=== PATIENT | male | born 1950 | race Caucasian/White ===

== ENCOUNTER 2016-09-10 09:57 | Inpatient (IN) ==
[2016-09-10 10:44] LABS: Calcium 8.8 mg/dL (8.6-10.8); Potassium 5.9 mEq/L (3.5-4.5)
[2016-09-10 11:01] LABS: Basophils % 0.5 %; Eosinophils # 0.1 K/mcL (0.0-0.6); Hematocrit 28.7 % (37.5-50.1); Hemoglobin 8.9 g/dL (12.9-16.9); Immature Granulocytes % 0.4 % (0-4); Lymphocytes % 13.9 %; Mean Corpuscular Hemoglobin 29.2 pg (28.0-33.3); Mean Corpuscular Volume 94.1 fL (83.0-100.0); Monocytes # 0.6 K/mcL (0.0-1.3); Monocytes % 8.2 %; Neutrophils # 5.5 K/mcL (1.6-8.9); Platelet Count 228 K/mcL (140-400); Red Blood Count 3.05 M/mcL (4.19-5.50); Red Cell Distribution Width 15.3 % (11.5-14.5)
--- NOTE | 2016-09-10 11:16 | Emergency Department Note ---
Disposition Clinical Impression: Acute renal failure (ARF), Hyperkalemia Disposition: Admitted As Inpatient Condition: Fair General Adult HPI - General Chief complaint: ED Recheck/Abnormal Lab/Rx Stated complaint: Abnormal labs Time Seen by Provider: 09/10/16 11:00 Source: patient Limitations: no limitations Nursing Notes Reviewed: Yes Vital Signs Reviewed: Yes - History of Present Illness HPI Narrative: Presents after being seen by the urologist yesterday and having a Prescott catheter placed because the patient has had difficulty with urinating. 1 and yesterday the creatinine level was 5.8 and so they sent the patient to the ED to have repeat blood tests done at the patient did have new-onset of renal failure. Denies any abdominal pain, fever, vomiting, blood in the urine or stool but has been going to an urgent care and was being treated for urinary tract infection and they did say they saw microscopic blood in the urine. No meds used for the renal failure. No hx renal failure Pain Scale: 0 - Related Data Home Medications Medication Instructions Recorded Confirmed Lisinopril [Zestril] 20 mg PO BID 09/10/16 09/10/16 Metoprolol [Lopressor] 25 mg PO BID 09/10/16 09/10/16 Naproxen Sodium [Aleve] 220 mg PO BID PRN 09/10/16 09/10/16 PredniSONE [Teresa] 3 mg PO DAILY 09/10/16 09/10/16 Tamsulosin [Flomax] 0.4 mg PO HS 09/10/16 09/10/16 Allergies Allergy/AdvReac Type Severity Reaction Status Date / Time No Known Allergies Allergy Verified 09/10/16 10:03 Review of Systems: Constitutional: No fever Vision: No blurred vision ENT: = rhinorrhea Respiratory: No cough Allergic: No allergies : No blood in urine GI: No blood in stool Hematologic: No bruising Dermatologic: No skin rash Musculoskeletal: No pain in the extremities Neuro: No numbness of the extremities Past Medical History - Past Medical History Medical history: Reports: hypertension, RA Psychiatric history: Reports: no psych history - Social History Smoking Status: Current every day smoker Smokeless Tobacco Status: Yes (jose enrique) Alcohol use: Reports: none Drug use: Reports: none Physical Exam CONSTITUTIONAL: Alert and oriented X3, well-nourished, well appearing, in no apparent distress HEAD: Normocephalic; atraumatic. EYES: PERRL, no scleral icterus. NOSE: The nose is normal in appearance without rhinorrhea RESP: Normal chest excursion with respiration; breath sounds clear and equal bilaterally; no wheezes, rhonchi, or rales CARD: Regular rhythm, without murmurs, rub or gallop ABD: Non-distended; very mild discomfort with palpation suprapubic area but soft without rigidity, rebound, guarding. Elsewhere the abdomen is non-tender , soft,without rigidity, rebound or guarding SKIN: Normal for age and race; warm and dry; no apparent lesions - General Limitations: no limitations General appearance: alert, in no apparent distress Course Vital Signs Temperature 98.4 F 09/10/16 09:58 Pulse Rate 81 09/10/16 09:58 Respiratory Rate 15 09/10/16 09:58 Blood Pressure 152/76 09/10/16 09:58 O2 Sat by Pulse Oximetry 99 09/10/16 09:58 Temperature 98.4 F 09/10/16 09:58 Pulse Rate 72 09/10/16 12:00 Respiratory Rate 18 09/10/16 12:06 Blood Pressure 150/72 09/10/16 12:06 O2 Sat by Pulse Oximetry 99 09/10/16 12:00 Oxygen Delivery Oxygen Delivery Room Air Medical Decision Making - [facility] Narrative Medical decision making narrative: The patient's symptoms are concerning with his elevated creatinine level and I did obtain an EKG showing normal sinus rhythm with a rate of 72 but does show evidence of hyperacute peaked T waves and a potassium level today is higher 5.9 and it was yesterday 5.6 the patient will receive insulin, dextrose, sodium bicarbonate. Because he is not symptomatic I will not give any calcium at this time. The patient will be admitted to the hospital I did speak with Kisha Johnson who is a nurse practitioner and she does accept the patient for admission to the hospitalist service. The patient's creatinine level is minimally improved compared to yesterday but is still over 4. He states he does not have a history of renal failure but has not had his kidney function checked in quite some time for over 1136, - Lab Data Lab results reviewed: Yes I reviewed the patient's lab results. Result diagrams: 09/10/16 10:49 05/11/17 10:20 Lab Results 09/10/16 09/10/16 09/10/16 Range/Units 10:20 10:36 10:49 WBC 7.3 (4.3-11.1) K/mcL RBC 3.05 L (4.19-5.50) M/mcL Hgb 8.9 L (12.9-16.9) g/dL Hct 28.7 L (37.5-50.1) % MCV 94.1 (83.0-100.0) fL MCH 29.2 (28.0-33.3) pg MCHC 31.0 L (31.6-35.5) g/dL RDW 15.3 H (11.5-14.5) % Plt Count 228 (140-400) K/mcL MPV 11.0 (9.4-12.4) fL Immature Gran % 0.4 (0-4) % Seg Neutrophils % 76.0 % Lymphocytes % 13.9 % Monocytes % 8.2 % Eosinophils % 1.0 % Basophils % 0.5 % Neutrophils # 5.5 (1.6-8.9) K/mcL Lymphocytes # 1.0 (0.6-4.6) K/mcL Monocytes # 0.6 (0.0-1.3) K/mcL Eosinophils # 0.1 (0.0-0.6) K/mcL Basophils # 0.0 (0.0-0.2) K/mcL Sodium 139 (136-145) mEq/L Potassium 5.9 H (3.5-4.5) mEq/L Chloride 120 H (98-109) mEq/L Carbon Dioxide 11 L (19-29) mEq/L BUN 65 H (8-26) mg/dL Creatinine 4.28 H (0.72-1.25) mg/dL Est GFR ( Amer) 17 L (> 60) Est GFR (Non-Af Amer) 14 L (> 60) BUN/Creatinine Ratio 15 (6-26) Glucose 122 H (70-99) mg/dL Calculated Osmolality 308 H (280-300) Calcium 8.8 (8.6-10.8) mg/dL Specimen Rejected MCV Delta
[2016-09-10] MEDS ORDERED: Insulin Human Regular 10 UNIT in 0.9 % Sodium Chloride 10 ML IV ONE (11:31)
[2016-09-10] MEDS ORDERED: Sodium Bicarbonate 50 MEQ/50 ML VIAL IVP ONE (11:31)
[2016-09-10] MEDS ORDERED: *HR* Dextrose 50 % in Water (Syg) 50 ML SYRINGE IVP ONE (11:32)
[2016-09-10] MEDS ORDERED: Acetaminophen 325 MG TABLET PO PRN (11:54)
[2016-09-10] MEDS ORDERED: Naloxone 0.4 MG/ML INJ IVP PRN (11:54)
[2016-09-10] MEDS ORDERED: D5% in 0.45% NACL 1,000 ML IVC SCH (12:00)
--- NOTE | 2016-09-10 12:10 | Internal Med History&Physical ---
Date of Encounter: 09/10/16 Time of Encounter: 11:30 Assessment and Plan (1) Acute renal failure (ARF) Current visit: Yes Status: Suspected Patient with acute renal failure. Unknown baseline. BUN and creatinine are severely elevated with hyperkalemia. Possible contributing factors include urinary retention, use of Aleve and lisinopril. Monitor urine output. IV hydration. Consult nephrology. Follow renal function closely. Qualifiers: Acute renal failure type: with acute tubular necrosis Qualified Code(s): N17.0 - Acute kidney failure with tubular necrosis (2) Essential hypertension Current visit: Yes Status: Chronic Blood pressure is elevated. Continue metoprolol. Hold lisinopril. (3) Hyperkalemia Current visit: Yes Status: Acute Potassium 5.9. Patient received sodium bicarbonate, insulin in the ER. Will recheck levels. Due to acute kidney injury (4) Hyperchloremic metabolic acidosis Current visit: Yes Status: Acute Will treat with IV hydration with D5 half normal saline and follow BMP. We will check for lactic acid. Internal Medicine - H&P: HPI Chief complaint: Asked to come in because of abnormal labs Admitted From: Emergency Dept Plans for Post Hospital Care: Home History of present illness: Mr. Woodruff is a 66 year old male patient with a history of hypertension who in by urology yesterday for urinary retention. He was referred to urology after multiple visits to the urgent care clinic for the past 3 months for urinary retention. Blood work was ordered yesterday and he had an abnormal renal function and so was asked to come to the ER. He denies any shortness of breath , pedal edema, chest pain or palpitations. She did have decreased urine output over the past 3 months and this seems to have improved after Prescott catheter was placed yesterday in the urology clinic. He has since then been having a much improved urine output. Denies any hematuria. No abdominal pain. No back pain. Patient has history of rheumatoid arthritis and has been taking Aleve 500 mg twice daily for the past 8 years. He is also on prednisone and has been tapering by 1 mg every month. He is currently taking 3 mg daily. He has not seen a biofuels plant construction worker recently and has an appointment with her biofuels plant construction worker in December. He has never been on any disease modifying agents. Past Med Surg Social Fam HX - Past Medical History Attestation: Yes The following information was validated with the patient. Source: patient Medical history: hypertension, RA Psychiatric history: no psych history - Past Surgical History Surgical History: other (Right rotator cuff surgery) - Social History Smoking Status: Current every day smoker Smokeless Tobacco Status: Yes (poloamritmara) Alcohol use: none Drug use: none - Additional Family History Additional family history: History of hypertension in multiple family members Internal Medicine - H&P: Meds Lisinopril [Zestril] 20 mg PO BID 09/10/16 [History] Metoprolol [Lopressor] 25 mg PO BID 09/10/16 [History] Naproxen Sodium [Aleve] 220 mg PO BID PRN 09/10/16 [History] PredniSONE [Teresa] 3 mg PO DAILY 09/10/16 [History] Tamsulosin [Flomax] 0.4 mg PO HS 09/10/16 [History] Allergies No Known Allergies Allergy (Verified 09/10/16 10:03) All Systems PM: A 10-system review of systems was performed and is negative for pertinent findings except as documented above in the HPI. - Constitutional Constitutional: malaise, no chills, no fever(s), no night sweats - EENT Eyes: no change in vision, no discharge, no pain, no photophobia Ears: no ear discharge, no ear pain, no tinnitus Nose, mouth and throat: no dysphagia, no nasal discharge, no neck pain, no sore throat - Cardiovascular Cardiovascular ROS IM: no chest pain, no diaphoresis, no dyspnea, no lightheadedness, no palpitations, no syncope - Respiratory Respiratory: no cough, no dyspnea, no wheezing, no excessive phlegm production - Gastrointestinal Gastrointestinal: no abdominal pain, no diarrhea, no hematemesis, no hematochezia, no melena, no nausea, no vomiting - Genitourinary Genitourinary ROS male: urinary hesitancy - Musculoskeletal Musculoskeletal ROS IM: no numbness, no tingling - Integumentary Integumentary IM: no rash, no unusual bruising - Neurological Neurological ROS: no confusion, no convulsions, no focal weakness, no numbness, no tingling, no tremor(s) - Hematologic/Lymphatic Hematologic/Lymphatic: no easy bruising - Constitutional Vitals: Temp Pulse Resp BP Pulse Ox 98.4 F 72 18 150/72 99 09/10/16 09:58 09/10/16 12:00 09/10/16 12:06 09/10/16 12:06 09/10/16 12:00 General appearance: Present: cooperative, A&O X 3, pleasant, no acute distress, answers questions appropriately - Eye Eye exam: Present: EOMI, PERRL, conjuntiva pink, sclera anicteric - Neck Neck exam general surgery: Present: supple, trachea midline. Absent: lymphadenopathy - Respiratory Respiratory exam: Present: CTAB. Absent: accessory muscle use, rales, rhonchi, wheezes - Cardiovascular Cardiovascular exam: Present: RRR, +S1, +S2. Absent: diastolic murmur, gallop, rubs, systolic murmur - GI/Abdominal GI/Abdominal exam: Present: normal bowel sounds, soft, no peritoneal signs. Absent: distended, tenderness - Extremities Exam Extremities exam: Present: warm, radial pulses palpable and symetrical. Absent : calf tenderness, cyanotic, pedal edema Additional comments: Changes in his finger joints related to rheumatoid arthritis noted bilaterally - Neurological Exam Neurological exam: Present: CN II-XII intact, oriented X3, no focal deficits, strengths equal and symetr throughout. Absent: facial droop, speech deficit - Skin Skin exam: Present: dry, intact Internal Med - H&P Results - Labs CBC & Chem 7: 09/10/16 10:49 09/10/16 10:20 - EKG Data -: EKG Interpreted by Myself - EKG Data EKG comments: 09/10/16 12:12 Sinus rhythm with hyperacute T waves in lateral leads - Attending Attestation This document has been at least partially created by [employer] recognition technology by Dr. Beard. Errors in grammar, wording or other phrases may exist. If errors are found after the documentation is signed, they will be addressed individually in the addendum section of this document when appropriate.
--- NOTE | 2016-09-10 13:18 | Nephrology Consult Note ---
<Mari Montoya - Last Filed: 09/10/16 13:29> Date of Encounter: 09/10/16 Time of Encounter: 13:15 Assessment and Plan (1) DAVE (acute kidney injury) Status: Acute Baseline of kidney function unknown. Suspect DAVE from urinary retention and penitentiary NSAID and Lisinopril usage. Need strict I/Os Will proceed with acute and chronic workup to include: renal ultrasoun, iron studies (iron, sat, ferritin), vitamin B12, folic acid, UA, urine culture, urine sodium, urine creatinine, urine eosinophils, CPK, uric acid level, PTH, C3 C4 complements, Vit D 25-OH, BRITTANY, spep, upep, urine albumin to creatine ratio Will change IV fluids to D5W with 150mEq sodium bicarb at 125ml/hour. Avoid nephrotoxins Continue to hold Aleve and Lisinopril Repeat BMP at 6pm tonight (2) Anemia Status: Acute Iron studies ordered Qualifiers: Anemia type: other cause Other causes of anemia: other cause, not classified Qualified Code(s): D64.89 - Other specified anemias (3) Hyperchloremic metabolic acidosis Status: Acute see above (4) Hyperkalemia Status: Acute see above History of Present Illness - Reason for Consult Consult date: 09/10/16 Acute Kidney Injury - Chief Complaint DAVE, hyperkalemia, metabolic acidosis - History of Present Illness Mr. Woodruff is a 66 year old male patient with a history of hypertension who was seen by urology yesterday for urinary retention. Patient has had problems with urinary retention x 3 months. Blood work was ordered yesterday and he had an abnormal renal function and so was asked to come to the ER. He did have decreased urine output over the past 3 months and this seems to have improved after Prescott catheter was placed yesterday in the urology clinic. Patient has history of rheumatoid arthritis and has been taking Aleve 220 mg twice daily for the past 8 years. He is also on prednisone and Lisinopril. Denies any past history of kidney disease nor any family history of kidney disease. Past Med Surg Social Fam HX - Past Medical History Medical history: hypertension, RA Psychiatric history: no psych history - Past Surgical History Surgical History: other - Social History Smoking Status: Current every day smoker Smokeless Tobacco Status: Yes (jose enrique) Alcohol use: none Drug use: none - Family History Father Living Status: Still Living Hx Family Cardiac Disorders: Yes Hx Family Cancer: Yes (prostate cancer) Medications and Allergies Metoprolol [Lopressor] 25 mg PO BID 09/10/16 [History] PredniSONE [Teresa] 3 mg PO DAILY 09/10/16 [History] Tamsulosin [Flomax] 0.4 mg PO HS 09/10/16 [History] Omeprazole [PriLOSEC] 40 mg PO DAILY@0630 #30 capsule. 09/13/16 [Rx] Allergies No Known Allergies Allergy (Verified 09/10/16 10:03) Review of Systems All Systems: reviewed and no additional remarkable complaints except as stated Constitutional: no anorexia, no chills, no lethargy, no malaise Cardiovascular: no chest pain, no dyspnea, no leg edema Respiratory: no cough, no dyspnea Genitourinary Male: difficulty urinating Neurological: no behavioral changes, no confusion Exam - Vital Signs Vital signs: Initial Vital Signs Temp Pulse Resp BP Pulse Ox 98.4 F 81 15 152/76 99 09/10/16 09:58 09/10/16 09:58 09/10/16 09:58 09/10/16 09:58 09/10/16 09:58 Vital Signs - Last 8 Hours Temp Pulse Resp BP Pulse Ox 09/10/16 13:14 97.6 F 85 16 144/75 98 09/10/16 12:06 18 150/72 09/10/16 12:00 72 18 148/81 99 Intake and Output 09/09/16 09/10/16 09/10/16 23:59 07:59 15:59 Output Total 150 / 150 Balance -150 / -150 Output: Catheter 150 / 150 Other: Weight 69 kg Patient Weight 09/10/16 23:59 Weight 69 kg - General Appearance General appearance: well-developed, well-nourished EENT: ATNC, mucous membranes moist, hearing intact, vision intact Neck: supple Respiratory: clear Cardiology: no edema, normal S1, normal S2 Gastrointestinal: no tenderness, no guarding Integumentary: warm and dry Neurologic: alert and oriented x3 Psychiatric: mood/affect appropriate, cooperative Results - Lab Results 09/10/16 10:49 09/10/16 10:20 Most recent lab results Calcium 8.8 mg/dL (8.6-10.8) 09/10/16 10:20 Consult Discharge Plan - Plan Instructions: Omeprazole (By mouth), Acute Kidney Injury (DC), Chronic Hypertension (DC), Anemia (GEN) Referrals: Jamie Adam DO [Partnered Physician] - (Web request sent in for follow up in 3weeks after D/C. Will call with appointment. 09/13/16) Bear Peters MD [Primary Care Provider] - (please call office on next business day to set up a follow up appointment in 5-7 days) Umair Venegas MD [Partnered Physician] - (Web request sent for appointment with urology in [place]. 09/13/16) Jemal Allen MD [Partnered Physician] - (Web request sent for appointment out patient d/t anemia 09/13/16) Prescriptions: Omeprazole [PriLOSEC] 40 mg PO DAILY@0630 #30 capsule. <Minnie Kinney - Last Filed: 09/20/16 23:37> Date of Encounter: 09/10/16 Exam - Vital Signs Vital signs: Initial Vital Signs Temp Pulse Resp BP Pulse Ox 98.4 F 81 15 152/76 99 09/10/16 09:58 09/10/16 09:58 09/10/16 09:58 09/10/16 09:58 09/10/16 09:58 Results - Lab Results 09/13/16 04:00 09/13/16 04:00 Most recent lab results Calcium 7.5 mg/dL (8.6-10.8) L 09/13/16 04:00 Urine Creatinine 49 mg/dL 09/10/16 18:56 Urine Sodium 86.0 mEq/L 09/10/16 15:10 Urine Total Protein 64 mg/dL (1-14) H 09/10/16 18:56 - Attending Attestation I examined this patient and my medical decision-making was reviewed with the BLUE [employer]IN[employer] TRIMMER/PA/Advanced Practice Nurse/Resident Physician. I agree with the documented findings, disposition and treatment plan as described except to the extent set forth below. Pt seen and examined with elevated SCr in the setting of urinary retention, NSAIDs and lisinopril. No acute indication for ORTHOPEDIC PHYSICIAN ASSISTANT at this time but will initiate workup for possible DAVE along with possible CKD, detail as documented by MANGANESE WHEELER.
[2016-09-10] MEDS ORDERED: Sodium Bicarbonate 150 MEQ in D5% in Water 1,000 ML IVC SCH (13:45)
[2016-09-10 14:43] LABS: Calcium 8.6 mg/dL (8.6-10.8); Potassium 5.1 mEq/L (3.5-4.5)
[2016-09-10 14:45] LABS: Uric Acid 6.7 mg/dL (3.5-7.2)
[2016-09-10 15:20] LABS: Folate 3.3 ng/mL (7.0-31.4)
--- NOTE | 2016-09-10 15:47 | Electrocardiograph Report ---
[address] [address] Test Date: 2016-09-10 Pat Name: Michael Woodruff Department: 105 Room: 2A44 Gender: M Volunteer Manager: ALEJANDRA : 1950 Requested By: Thony Sharma Order Number: [id number] Reading MD: Jem Cam Measurements Intervals [place] Rate: 72 P: 68 WV: 145 QRS: 20 QRSD: 89 T: 49 QT: 363 QTc: 387 Interpretive Statements SINUS RHYTHM Electronically Signed On 09-10-2016 15:46:32 EDT by Jem Cam
[2016-09-10 19:16] LABS: Bilirubin,Urine Negative (Negative); Blood,Urine Large (Negative); Clarity,Urine Turbid (Clear); Color,Urine Yellow (Yellow); Glucose,Urine (UA) Normal (Normal); Ketones,Urine Negative (Negative); Leukocyte Esterase,Urine Large (Negative); Nitrite,Urine Negative (Negative); PH,Urine 5.5 pH Units (5.0-8.0); Protein,Urine 30 mg/dL (Neg-Trace); Urobilinogen,Urine Normal (Normal)
[2016-09-10 19:23] LABS: Bacteria,Urine None Seen per hpf (None-Few); RBC,Urine 50-100 per hpf (0-3); Squamous Epithelial Cell,Urine Moderate per lpf (None-Few); WBC,Urine TNTC per hpf (0-3)
[2016-09-10 19:25] LABS: Protein/Creatinine Ratio,Urine 1.31 mg/mg (0-0.20)
[2016-09-11 04:53] LABS: Basophils % 0.5 %; Eosinophils # 0.3 K/mcL (0.0-0.6); Eosinophils % 4.1 %; Hematocrit 21.9 % (37.5-50.1); Immature Granulocytes % 0.9 % (0-4); Lymphocytes # 1.8 K/mcL (0.6-4.6); Lymphocytes % 23.2 %; Mean Corpuscular HGB Conc 32.4 g/dL (31.6-35.5); Mean Corpuscular Hemoglobin 29.2 pg (28.0-33.3); Mean Corpuscular Volume 90.1 fL (83.0-100.0); Mean Platelet Volume 11.2 fL (9.4-12.4); Monocytes # 0.7 K/mcL (0.0-1.3); Monocytes % 8.8 %; Neutrophils # 4.8 K/mcL (1.6-8.9); Platelet Count 191 K/mcL (140-400); Red Blood Count 2.43 M/mcL (4.19-5.50); Red Cell Distribution Width 14.9 % (11.5-14.5); Segmented Neutrophils % 62.5 %
[2016-09-11 05:02] LABS: Hemoglobin 7.1 g/dL (12.9-16.9)
[2016-09-11 05:05] LABS: Hemoglobin A1C 5.2 %
[2016-09-11 05:11] LABS: Chol/HDL Ratio 4.7 (0-4.9)
[2016-09-11 05:12] LABS: Calcium 7.8 mg/dL (8.6-10.8); Potassium 4.2 mEq/L (3.5-4.5)
[2016-09-11] MEDS ORDERED: *HR* Heparin 5,000 UNIT/ML VIAL SQ SCH (06:00)
[2016-09-11] MEDS: predniSONE 1 MG TABLET PO SCH (08:35)
--- NOTE | 2016-09-11 10:28 | Nephrology Progress Note ---
Date of Encounter: 09/11/16 Time of Encounter: 08:05 - Assessment and Plan (1) Bilateral hydronephrosis Current Visit: Yes Status: Acute Noted on renal U/S. Most likely etiology for the DAVE,which is starting to trend better already. (2) DAVE (acute kidney injury) Current Visit: Yes Status: Acute DAVE appears primarily post-renal. Continue the ochoa catheter which has helped already improve the renal function. His appetite is improving so the uremic symptoms are resolving, and so no urgent HD is indicated. He will need close urology follow up, but continue the ochoa until then. Metabolic acidosis should correct. Will stop the bicarb gtt. In fact, he has a risk of developing a post-obstructive autodiuresis. Monitor UOP, K, Na ( sometimes pt's can develop hypernatremia in this situation) Will switch to 1/2NS today, which would be more appropriate (3) Hyperkalemia Current Visit: Yes Status: Acute Improving (4) Essential hypertension Current Visit: Yes Status: Chronic Will monitor. Avoid JANINE or ARB d/t the DAVE (5) Proteinuria Current Visit: Yes Status: Acute He has RA and is taking NSAIDs every day, so these conditions likely explains the findings of mild proteinuria. Plus just having an DAVE can lead to some proteinuria as well. Qualifiers: Proteinuria type: persistent Qualified Code(s): R80.1 - Persistent proteinuria, unspecified Subjective Principal diagnosis: DAVE, BPH Interval history: Pt was S/E. His said his appetite has already started to improve. Was taking Aleve daily for his RA. He did not affirm N/V/D today nor abd pain. Ochoa was placed last night and Bicarb gtt was given. Objective - Vital Signs Vital signs: Vital Signs Temp Pulse Resp BP Pulse Ox 09/11/16 08:30 96 09/11/16 07:16 98.4 F 66 14 116/67 96 09/11/16 05:02 98.2 F 77 17 133/73 98 09/10/16 23:52 98.1 F 74 16 127/72 97 09/10/16 19:42 98.3 F 76 18 137/67 96 09/10/16 17:06 98.3 F 74 16 155/72 99 09/10/16 13:14 97.6 F 85 16 144/75 98 09/10/16 12:06 18 150/72 05/11/17 12:00 72 18 148/81 99 Intake and Output 09/10/16 09/11/16 09/11/16 23:59 07:59 15:59 Intake Total 240 / 240 Output Total 200 / 200 1200 / 1200 800 / 800 Balance -200 / -200 -1200 / -1200 -560 / -560 Intake: Oral 240 / 240 Output: Urine 0 / 0 Straight Cath 1200 / 1200 Catheter 200 / 200 800 / 800 Other: Meal Dinner Breakfast Percent of Meal Consumed 10% 100% # Bowel Movements 1 Weight 69 kg Patient Weight 09/11/16 23:59 Weight 69 kg - General Appearance General appearance: Present: well-developed, well-nourished, appears started age Exam: Long facial roberts EENT: Present: ATNC, PERRL, mucous membranes moist Neck: Present: supple Respiratory: Present: clear Cardiology: Present: no edema, normal S1, normal S2 Gastrointestinal: Present: normoactive bowel sounds, no tenderness, no guarding Integumentary: Present: no rash, warm and dry Neurologic: Present: no focal deficit, no asterixis, alert and oriented x3 Musculoskeletal: Present: no deformities, no erythema, no cyanosis, joint swelling (with ulnar deviation of wrists and fingers) Psychiatric: Present: mood/affect appropriate, cooperative - Lab 09/11/16 04:13 09/11/16 04:13 Most recent lab results Calcium 7.8 mg/dL (8.6-10.8) L 09/11/16 04:13 Urine Creatinine 49 mg/dL 09/10/16 18:56 Urine Total Protein 64 mg/dL (1-14) H 09/10/16 18:56 Consult Discharge Plan - Plan Referrals: Bear Peters MD [Primary Care Provider] -
[2016-09-11] MEDS ORDERED: Sodium Bicarbonate 150 MEQ in D5% in Water 1,000 ML IVC SCH (10:30)
--- NOTE | 2016-09-11 17:00 | Internal Med Progress Note ---
Date of Encounter: 09/11/16 Time of Encounter: 14:00 - Assessment and plan (1) DAVE (acute kidney injury) Current Visit: Yes Status: Acute Assessment and plan: likely postrenal, continue with ochoa and nephrology input, no indications for hd avoid nephrotoxic agents. (2) Anemia Current Visit: Yes Status: Acute Assessment and plan: likely due to chronic disease, also positive blood in stool, will start ppi, recheck hb tomorrow. Qualifiers: Anemia type: other cause Other causes of anemia: other cause, not classified Qualified Code(s): D64.89 - Other specified anemias (3) Bilateral hydronephrosis Current Visit: Yes Status: Acute - Subjective Interval history: first encounter with the patient. no cough, no shortness of breath, no melena. - Constitutional Vitals: Temp Pulse Resp BP Pulse Ox 98.2 F 74 15 132/70 95 09/11/16 15:06 09/11/16 15:06 09/11/16 15:06 09/11/16 15:06 09/11/16 15:06 General appearance: Present: cooperative, A&O X 3, pleasant, no acute distress, answers questions appropriately - Head Head exam: Present: atraumatic, normocephalic - Eye Eye exam: Present: PERRL, conjuntiva pink, sclera anicteric Pupils: Present: PERRL - Neck Neck exam general surgery: Present: supple, trachea midline. Absent: lymphadenopathy - Respiratory Respiratory exam: Present: CTAB. Absent: accessory muscle use, rales, rhonchi, wheezes - Cardiovascular Cardiovascular exam: Present: RRR, +S1, +S2. Absent: diastolic murmur, gallop, rubs, systolic murmur - GI/Abdominal GI/Abdominal exam: Present: normal bowel sounds, soft, no peritoneal signs. Absent: distended, tenderness - Extremities Exam Extremities exam: Present: warm, radial pulses palpable and symetrical. Absent : calf tenderness, cyanotic, pedal edema - Neurological Exam Neurological exam: Present: CN II-XII intact, oriented X3, no focal deficits. Absent: pronater drift, facial droop, speech deficit - Skin Skin exam: Present: dry, intact Internal Medicine: Result - Labs CBC & Chem 7: 09/11/16 04:13 05/12/17 04:13 Labs: Short CBC 09/11/16 Range/Units 04:13 WBC 7.7 (4.3-11.1) K/mcL Hgb 7.1 L D (12.9-16.9) g/dL Hct 21.9 L (37.5-50.1) % Plt Count 191 (140-400) K/mcL Neutrophils # 4.8 (1.6-8.9) K/mcL BMP 09/10/16 09/11/16 17:05 04:13 Sodium 140 Potassium 4.8 H 4.2 Chloride 109 Carbon Dioxide 22 BUN 50 H D Creatinine 3.02 H Glucose 114 H Calcium 7.8 L Urine 09/10/16 Range/Units 18:56 Urine Color Yellow (Yellow) Urine Clarity Turbid A (Clear) Urine pH 5.5 (5.0-8.0) pH Units Ur Specific [place] 1.010 (1.010-1.025) Urine Protein 30 H (Neg-Trace) mg/dL Urine Glucose (UA) Normal (Normal) mg/dL - Impressions Impressions Retroperitoneum Ultrasound 09/10/16 15:30 IMPRESSION: Bilateral hydronephrosis, right worse than left, without obvious etiology. Kidneys are otherwise unremarkable. Limited evaluation of urinary bladder secondary to underdistention. There is diffuse bladder wall thickening which may relate to the underdistention but nonspecific cystitis or chronic bladder outlet obstruction not excluded. Clinical and laboratory correlation suggested. Enlarged prostate. D/ / 09/10/2016 16:39:33 Frantz Bonilla MD / Jasmina Hong Interpreting Provider: Frantz Bonilla MD - VTE Documentation of Mechanical Device: Intermittent pneumatic compression device Consult Discharge Plan - Plan Referrals: Bear Peters MD [Primary Care Provider] -
[2016-09-12 03:22] LABS: Basophils % 0.5 %; Eosinophils # 0.3 K/mcL (0.0-0.6); Eosinophils % 3.8 %; Hematocrit 24.4 % (37.5-50.1); Hemoglobin 7.8 g/dL (12.9-16.9); Immature Granulocytes % 0.8 % (0-4); Lymphocytes # 1.9 K/mcL (0.6-4.6); Lymphocytes % 24.9 %; Mean Corpuscular Hemoglobin 29.5 pg (28.0-33.3); Mean Corpuscular Volume 92.4 fL (83.0-100.0); Mean Platelet Volume 11.4 fL (9.4-12.4); Monocytes # 0.7 K/mcL (0.0-1.3); Monocytes % 9.2 %; Neutrophils # 4.6 K/mcL (1.6-8.9); Platelet Count 189 K/mcL (140-400); Red Blood Count 2.64 M/mcL (4.19-5.50); Red Cell Distribution Width 14.8 % (11.5-14.5); Segmented Neutrophils % 60.8 %
[2016-09-12 03:34] LABS: Calcium 7.6 mg/dL (8.6-10.8); Potassium 4.1 mEq/L (3.5-4.5)
[2016-09-12] MEDS: predniSONE 1 MG TABLET PO SCH (08:21)
[2016-09-12 10:48] LABS: Complement Component 3 91 mg/dL (88-201); Complement Component 4 14 mg/dL (10-40)
[2016-09-12 11:38] LABS: Total Volume 24 Hour,Urine 3.49 Liters (0.80-1.80)
[2016-09-12 12:05] LABS: Creatinine 24 Hour,Urine 1.57 g/day (0.71-1.65)
--- NOTE | 2016-09-12 12:10 | Internal Med Progress Note ---
Date of Encounter: 09/12/16 Time of Encounter: 12:08 - Assessment and plan (1) DAVE (acute kidney injury) Current Visit: Yes Status: Acute Assessment and plan: likely postrenal, continue with ochoa and nephrology input, no indications for hd renal fucntion tests getting better. will continue monitoring. avoid nephrotoxic agents. (2) Anemia Current Visit: Yes Status: Acute Assessment and plan: likely due to chronic disease, also positive blood in stool, will continuw with ppi, hb got better today, hb is 7.8. recheck hb tomorrow. Qualifiers: Anemia type: other cause Other causes of anemia: other cause, not classified Qualified Code(s): D64.89 - Other specified anemias (3) Bilateral hydronephrosis Current Visit: Yes Status: Acute - Subjective Interval history: feels better. no cough, no shortness of breath, no melena. - Constitutional Vitals: Temp Pulse Resp BP Pulse Ox 98.1 F 61 18 117/69 96 09/12/16 10:49 09/12/16 10:49 09/12/16 10:49 09/12/16 10:49 09/12/16 10:49 General appearance: Present: cooperative, A&O X 3, pleasant, no acute distress, answers questions appropriately Exam: ochoa bg with clear urine. - Head Head exam: Present: atraumatic, normocephalic - Eye Eye exam: Present: PERRL, conjuntiva pink, sclera anicteric Pupils: Present: PERRL - Neck Neck exam general surgery: Present: supple, trachea midline. Absent: lymphadenopathy - Respiratory Respiratory exam: Present: CTAB. Absent: accessory muscle use, rales, rhonchi, wheezes - Cardiovascular Cardiovascular exam: Present: RRR, +S1, +S2. Absent: diastolic murmur, gallop, rubs, systolic murmur - GI/Abdominal GI/Abdominal exam: Present: normal bowel sounds, soft, no peritoneal signs. Absent: distended, tenderness - Extremities Exam Extremities exam: Present: warm, radial pulses palpable and symetrical. Absent : calf tenderness, cyanotic, pedal edema - Neurological Exam Neurological exam: Present: CN II-XII intact, oriented X3, no focal deficits. Absent: pronater drift, facial droop, speech deficit - Skin Skin exam: Present: dry, intact Internal Medicine: Result - Labs CBC & Chem 7: 09/12/16 02:32 09/12/16 02:32 Labs: Short CBC 09/12/16 Range/Units 02:32 WBC 7.6 (4.3-11.1) K/mcL Hgb 7.8 L (12.9-16.9) g/dL Hct 24.4 L (37.5-50.1) % Plt Count 189 (140-400) K/mcL Neutrophils # 4.6 (1.6-8.9) K/mcL BMP 09/12/16 02:32 Sodium 137 Potassium 4.1 Chloride 106 Carbon Dioxide 23 BUN 39 H D Creatinine 2.58 H Glucose 99 Calcium 7.6 L - VTE Documentation of Mechanical Device: Intermittent pneumatic compression device Consult Discharge Plan - Plan Referrals: Bear Peters MD [Primary Care Provider] -
--- NOTE | 2016-09-12 16:27 | Nephrology Progress Note ---
Date of Encounter: 09/12/16 Time of Encounter: 14:15 - Assessment and Plan (1) Bilateral hydronephrosis Current Visit: Yes Status: Acute Noted on renal U/S. Most likely etiology for the DAVE. The DAVE is continuing to improve with the ochoa in place. (2) DAVE (acute kidney injury) Current Visit: Yes Status: Acute Improving, ADVE, which appears primarily post-renal. Continue the ochoa catheter which has helped already improve the renal function. He will need close urology follow up, but continue the ochoa until then. Will continue to monitor UOP, K, Na (sometimes pt's can develop hypernatremia in this situation) Will switch to 1/2NS today, which would be more appropriate. Earlier today I held the 1/2NS and will assess his renal function tomorrow AM to see if he can orally maintain his renal function Continue to follow a renal protective strategy. Thank you. (3) Hyperkalemia Current Visit: Yes Status: Acute Improving (4) Essential hypertension Current Visit: Yes Status: Chronic Will monitor. Avoid JANINE or ARB d/t the DAVE (5) Proteinuria Current Visit: Yes Status: Acute He has RA and is taking NSAIDs every day, so these conditions likely explains the findings of mild proteinuria. Plus just having an DAVE can lead to some proteinuria as well. Qualifiers: Proteinuria type: persistent Qualified Code(s): R80.1 - Persistent proteinuria, unspecified Subjective Principal diagnosis: DAVE, BPH Interval history: Pt was S/E. His said his appetite remains intact. He did not affirm N/V/D today nor abd pain. Ochoa remains in place. Objective - Vital Signs Vital signs: Vital Signs Temp Pulse Resp BP Pulse Ox 09/12/16 15:40 98.2 F 72 18 124/68 96 09/12/16 10:49 98.1 F 61 18 117/69 96 09/12/16 08:45 96 09/12/16 06:55 98.3 F 66 16 109/62 96 09/12/16 04:06 97.9 F 71 15 102/66 97 09/12/16 00:06 97.7 F 74 15 116/66 97 09/11/16 19:50 98.2 F 82 18 121/67 96 Intake and Output 05/13/17 05/13/17 05/13/17 07:59 15:59 23:59 Intake Total 1300 / 1300 360 / 360 Output Total 550 / 550 1949 / 1949 Balance 750 / 750 -1590 / -1590 Intake: IV Fluids 1000 / 1000 0.45% Sodium Chloride 1000 / 1000 1000 Ml 1000 Ml 1,000 ML @ 75 mls/hr IVC .[id number] [facility] Rx#:[id number] Oral 300 / 300 360 / 360 Output: Urine 0 / 0 Catheter 550 / 550 1949 Other: Meal Lunch Percent of Meal Consumed 100% Weight 69.2 kg Patient Weight 09/12/16 23:59 Weight 69.2 kg - General Appearance General appearance: Present: well-developed, well-nourished, appears started age EENT: Present: ATNC, PERRL, mucous membranes moist Neck: Present: supple Respiratory: Present: clear Cardiology: Present: regular rate, regular rhythm, normal S1, normal S2 Gastrointestinal: Present: normoactive bowel sounds, no tenderness, no guarding Integumentary: Present: no rash, warm and dry Neurologic: Present: no focal deficit, no asterixis, alert and oriented x3 Musculoskeletal: Present: no deformities, no erythema, no cyanosis Psychiatric: Present: mood/affect appropriate, cooperative - Lab 09/12/16 02:32 09/12/16 02:32 Most recent lab results Calcium 7.6 mg/dL (8.6-10.8) L 09/12/16 02:32 Urine Creatinine 49 mg/dL 09/10/16 18:56 Urine Sodium 86.0 mEq/L 09/10/16 15:10 Urine Total Protein 64 mg/dL (1-14) H 09/10/16 18:56 - VTE Documentation of Mechanical Device: Intermittent pneumatic compression device Consult Discharge Plan - Plan Referrals: Bear Peters MD [Primary Care Provider] -
[2016-09-13 04:16] LABS: Basophils % 0.4 %; Eosinophils # 0.3 K/mcL (0.0-0.6); Hematocrit 26.6 % (37.5-50.1); Hemoglobin 8.5 g/dL (12.9-16.9); Immature Granulocytes % 0.9 % (0-4); Lymphocytes % 25.5 %; Mean Corpuscular Hemoglobin 29.3 pg (28.0-33.3); Mean Corpuscular Volume 91.7 fL (83.0-100.0); Monocytes # 0.7 K/mcL (0.0-1.3); Monocytes % 9.4 %; Neutrophils # 4.7 K/mcL (1.6-8.9); Platelet Count 183 K/mcL (140-400); Red Cell Distribution Width 14.6 % (11.5-14.5); Segmented Neutrophils % 59.8 %
[2016-09-13 04:26] LABS: Calcium 7.5 mg/dL (8.6-10.8); Potassium 4.1 mEq/L (3.5-4.5)
[2016-09-13] MEDS: predniSONE 1 MG TABLET PO SCH (08:40)
--- NOTE | 2016-09-13 08:47 | Nephrology Progress Note ---
Date of Encounter: 09/13/16 Time of Encounter: 09:25 - Assessment and Plan (1) Bilateral hydronephrosis Status: Acute Noted on renal U/S. Most likely etiology for the DAVE. The DAVE is continuing to improve with the ochoa in place. (2) DAVE (acute kidney injury) Status: Acute Slowly improving, DAVE, which appears primarily post-renal. Continue the ochoa catheter which has helped already improve the renal function. Advised ongoing increased oral intake for a goal of about 2L per day. He will need close urology follow up, but continue the ochoa until then. Continue to follow a renal protective strategy. Thank you. (3) Hyperkalemia Status: Resolved Improved (4) Essential hypertension Status: Chronic Will monitor. Avoid JANINE or ARB d/t the DAVE (5) Proteinuria Status: Acute He has RA and is taking NSAIDs every day, so these conditions likely explains the findings of mild proteinuria. Plus just having an DAVE can lead to some proteinuria as well. Qualifiers: Proteinuria type: persistent Qualified Code(s): R80.1 - Persistent proteinuria, unspecified Subjective Principal diagnosis: DAVE, BPH Interval history: Pt was S/E. His said his appetite remains intact. He did not affirm N/V/D today nor abd pain. Ochoa remains in place. He has seen [facility] in [place], [place]. Objective - Vital Signs Vital signs: Vital Signs Temp Pulse Resp BP Pulse Ox 09/13/16 07:00 98.5 F 76 16 110/67 95 09/13/16 04:07 98.6 F 72 18 106/66 96 09/12/16 19:04 98.5 F 82 16 117/69 97 09/12/16 15:40 98.2 F 72 18 124/68 96 09/12/16 10:49 98.1 F 61 18 117/69 96 Intake and Output 09/12/16 09/13/16 09/13/16 23:59 07:59 15:59 Intake Total 240 / 240 240 / 240 Output Total 1150 / 1150 900 / 900 Balance -910 / -910 -900 / -900 240 / 240 Intake: Oral 240 / 240 240 / 240 Output: Catheter 1150 / 1150 900 / 900 Other: Meal Breakfast Percent of Meal Consumed 100% Weight 68.8 kg Patient Weight 09/13/16 23:59 Weight 68.8 kg - General Appearance General appearance: Present: well-developed, well-nourished, appears started age EENT: Present: ATNC, PERRL Neck: Present: supple Respiratory: Present: clear Cardiology: Present: no edema, regular rate, regular rhythm, normal S1, normal S2 Gastrointestinal: Present: normoactive bowel sounds, no tenderness, no guarding Integumentary: Present: no rash, warm and dry Neurologic: Present: no focal deficit, no asterixis, alert and oriented x3 Musculoskeletal: Present: no deformities, no erythema, no cyanosis Psychiatric: Present: mood/affect appropriate, cooperative - Lab 09/13/16 04:00 09/13/16 04:00 Most recent lab results Calcium 7.5 mg/dL (8.6-10.8) L 09/13/16 04:00 Urine Creatinine 49 mg/dL 09/10/16 18:56 Urine Sodium 86.0 mEq/L 09/10/16 15:10 Urine Total Protein 64 mg/dL (1-14) H 09/10/16 18:56 - VTE Documentation of Mechanical Device: Intermittent pneumatic compression device Consult Discharge Plan - Plan Instructions: Omeprazole (By mouth), Acute Kidney Injury (DC), Chronic Hypertension (DC), Anemia (GEN) Referrals: Jamie Adam DO [Partnered Physician] - (Web request sent in for follow up in 3weeks after D/C. Will call with appointment. 09/13/16) Bear Peters MD [Primary Care Provider] - (please call office on next business day to set up a follow up appointment in 5-7 days) Umair Venegas MD [Partnered Physician] - (Web request sent for appointment with urology in [place]. 09/13/16) Jemal Allen MD [Partnered Physician] - (Web request sent for appointment out patient d/t anemia 09/13/16) Prescriptions: Omeprazole [PriLOSEC] 40 mg PO DAILY@0630 #30 capsule.
[2016-09-13 10:09] LABS: ANA IgG by ELISA DETECTED (None Detected)
[2016-09-13 11:09] VITALS: BP 112/67
--- NOTE | 2016-09-13 11:19 | Discharge Summary ---
Date of Encounter: 09/13/16 Time of Encounter: 11:13 - Discharge Diagnosis (1) DAVE (acute kidney injury) Priority: Primary Status: Acute (2) Anemia Priority: Secondary Status: Acute Qualifiers: Anemia type: other cause Other causes of anemia: other cause, not classified Qualified Code(s): D64.89 - Other specified anemias (3) Bilateral hydronephrosis Priority: Secondary Status: Acute - Discharge Medications Prescriptions: Omeprazole [PriLOSEC] 40 mg PO DAILY@0630 #30 capsule.dr Tenorio Medications: Metoprolol [Lopressor] 25 mg PO BID 09/10/16 [History] PredniSONE [Teresa] 3 mg PO DAILY 09/10/16 [History] Tamsulosin [Flomax] 0.4 mg PO HS 09/10/16 [History] Omeprazole [PriLOSEC] 40 mg PO DAILY@0630 #30 capsule. 09/13/16 [Rx] Allergies/Adverse Reactions: Allergies No Known Allergies Allergy (Verified 09/10/16 10:03) Procedures/tests Complete & Pending: Procedures Performed prior 72 hours Category Date Time Status US retroperitoneal comp [US] Routine Exams 09/10/16 15:30 Completed Date of admission: 09/10/16 11:54 Primary care physician: Bear Peters, Consults: 09/10/16 12:16 Consult to Nephrology [CONS] Routine Consulting Provider: Kidney Ruth/LYNN/ARUN/EARNEST Reason for Consult: Acute renal failure Time Notified: 12:16 Call Completed: Yes Discharging clinician: Reji Rosales Anticipated date of discharge: 09/13/16 - Patient Status Disposition: Home, Self-Care Condition: Fair Functional capacity at discharge: independent ambulation Overall status at discharge: patient is back to baseline - Discharge Instructions Instructions: Acute Kidney Injury (DC), Chronic Hypertension (DC), Anemia (GEN) Follow Up With: Jamie Adam DO [Partnered Physician] - (Web request sent in for follow up in 3weeks after D/C. Will call with appointment. 09/13/16) Bear Peters MD [Primary Care Provider] - (please call office on next business day to set up a follow up appointment in 5-7 days) Umair Venegas MD [Partnered Physician] - (Web request sent for appointment with urology in [place]. 09/13/16) Jemal Allen MD [Partnered Physician] - (Web request sent for appointment out patient d/t anemia 09/13/16) - Diet and Activity Activity: increase activity as tolerated Diet: other (renal) Interval History: Mr. Woodruff is a 66 year old male patient with a history of hypertension who in by urology yesterday for urinary retention. He was referred to urology after multiple visits to the urgent care clinic for the past 3 months for urinary retention. Blood work was ordered yesterday and he had an abnormal renal function and so was asked to come to the ER. He denies any shortness of breath , pedal edema, chest pain or palpitations. She did have decreased urine output over the past 3 months and this seems to have improved after Ochoa catheter was placed yesterday in the urology clinic. He has since then been having a much improved urine output. Denies any hematuria. No abdominal pain. No back pain. Patient has history of rheumatoid arthritis and has been taking Aleve 500 mg twice daily for the past 8 years. He is also on prednisone and has been tapering by 1 mg every month. He is currently taking 3 mg daily. He has not seen a airconditioning drafting officer recently and has an appointment with her airconditioning drafting officer in December. He has never been on any disease modifying agents. Hospital course: Mr. Woodruff is a 66 year old male admitted due to DAVE, likely postrenal, imporving since admission, creatinine intially was 3.89, today is 2.55, hyperkalemia has been corrected as well (from 5.1 to 4.1 today), chao inhibitors were stopped. will continue with ochoa, no indications for hd. renal function tests getting better. will continue with nephrology follow up in 3 weeks. Urology follow up as outpatient for his hydronephrosis, patient shall be discharged with the ochoa in. He was strongly advised not to take nsaids. Hb trending up, no sings of bleeeding, patient had a positive blood in the stools, he was sarted on ppi, will continue with ppi and recommend a follow up with GI. avoid nephrotoxic agents. d/w patient. - Time Spent with Patient Total time spent providing and/or coordinating discharge services: - Constitutional Vitals: Temp Pulse Resp BP Pulse Ox 98.5 F 69 18 112/67 98 09/13/16 11:08 09/13/16 11:08 09/13/16 11:08 09/13/16 11:08 09/13/16 11:08 General appearance: Present: cooperative, A&O X 3, pleasant, no acute distress, answers questions appropriately - Head Head exam: Present: atraumatic, normocephalic - Eye Eye exam: Present: PERRL, conjuntiva pink, sclera anicteric Pupils: Present: PERRL - Neck Neck exam general surgery: Present: supple, trachea midline. Absent: lymphadenopathy - Respiratory Respiratory exam: Present: CTAB. Absent: accessory muscle use, rales, rhonchi, wheezes - Cardiovascular Cardiovascular exam: Present: RRR, +S1, +S2. Absent: diastolic murmur, gallop, rubs, systolic murmur - GI/Abdominal GI/Abdominal exam: Present: normal bowel sounds, soft, no peritoneal signs. Absent: distended, tenderness - Extremities Exam Extremities exam: Present: warm, radial pulses palpable and symetrical. Absent : calf tenderness, cyanotic, pedal edema - Neurological Exam Neurological exam: Present: CN II-XII intact, oriented X3, no focal deficits. Absent: pronater drift, facial droop, speech deficit - Skin Skin exam: Present: dry, intact - VTE Documentation of Mechanical Device: Intermittent pneumatic compression device
[2016-09-13 14:07] LABS: Alpha 2 Globulin (PEP) 0.71 g/dL (0.48-1.05); Beta Globulin (PEP) 0.88 g/dL (0.48-1.10)
[2016-09-14 07:14] LABS: IFE Reflexed NOT DONE
== END 2016-09-13 11:55 | disposition home or self-care (01) | DRG 683 ==
LOC: EMEROO 09:57 → 2ANU 09:57
PROVIDERS: ADMIT Internal Medicine; ATTEND Internal Medicine

== ENCOUNTER 2016-10-23 13:10 | Inpatient (IN) ==
[2016-10-23] MEDS ORDERED: Lidocaine -MPF 1% 2 ML VIAL ID ONE (14:04)
[2016-10-23] MEDS ORDERED: CeFAZolin Pre 2,000 MG/100 ML 2,000 MG/100 ML BAG IVPB ONE (14:04)
[2016-10-23] MEDS ORDERED: Albuterol 2.5 MG/3 ML NEBULIZER IH ONE (14:04)
[2016-10-23] MEDS ORDERED: Ringers Solution, Lactated 1,000 ML IVC SCH (14:15)
--- NOTE | 2016-10-23 14:18 | Anesthesia Evaluation PreOp ---
Date of Encounter: 10/23/16 Time of Encounter: 14:16 - Past History Planned Operation: TURP Cardiac History: HTN Pulmonary History: Smoker TERADATA ARCHITECT History: Denies Any Significant HX Other Medical History: Renal (ckd), Other (Rheumatoid arthritis - on steroids for 6 months (currently being weaned off)) Anesthesia History: No Prior Anesthetic Complications Alcohol Use: none Drug use: none Medications and Allergies Metoprolol [Lopressor] 25 mg PO BID 09/10/16 [History] PredniSONE [Teresa] 2 mg PO DAILY 09/10/16 [History] Tamsulosin [Flomax] 0.4 mg PO HS 09/10/16 [History] Allergies No Known Allergies Allergy (Verified 10/23/16 14:04) - Meds/Allergy Pre-op Review Medications Reviewed: Yes Allergies Reviewed: Yes Beta Blockers on Current Med List: Yes If Beta Blockers taken, Date/Time (Last Dose taken): 10-23-16 metoprolol at 8:30 Anesthesia Results - Labs Laboratory Tests 09/11/16 10/22/16 10/22/16 04:13 11:07 11:07 WBC 7.0 Hgb 10.2 L Hct 31.2 L Plt Count 220 Sodium 137 Potassium 4.5 Chloride 105 Carbon Dioxide 23 BUN 21 Creatinine 1.73 H Est GFR ( Amer) 48 L Est GFR (Non-Af Amer) 40 L BUN/Creatinine Ratio 12 Glucose 100 H Est Mean Plasma Glucose 103 Hemoglobin A1c 5.2 - Imaging EKG: report reviewed, image reviewed (sr) Anesthesia Exam Weight: 66 kg NPO (# of Hours): >> 8 hrs - HEENT Pupil (Motor): Pupils equal, EOMI Mallampati: I Teeth: Poor dentition Oral Opening: Greater than 3 - TERADATA ARCHITECT LOC: Oriented TERADATA ARCHITECT Motor: Normal RUE, Normal LUE, Normal RLE, Normal LLE, Normal Face - Cardiac Rhythm: Regular Murmur: None - Pulmonary Breath Sounds: bilateral Clear Anesthesia Assess/Plan ASA Score: 2 Modified [place] Scale for Level of Consciousness: Cooperative, oriented, and tranquil Anesthetic Plan: General Monitoring Plan: Standard Monitors Recovery Plan: PACU
[2016-10-23] MEDS ORDERED: *HR* FentaNYL (PF) 100 MCG/2 ML VIAL ONE (14:26)
[2016-10-23] MEDS ORDERED: *HR* Midazolam HCl 2 MG/2 ML VIAL ONE (14:26)
[2016-10-23] MEDS ORDERED: Lidocaine -MPF 2% 2 ML VIAL ONE (14:27)
[2016-10-23] MEDS ORDERED: *HR* Propofol 200 MG/20 ML VIAL IVP ONE (14:27)
[2016-10-23] MEDS ORDERED: 0.9 % Sodium Chloride 500 ML IVC SCH (14:45)
--- NOTE | 2016-10-23 14:56 | History & Physical Report ---
Date of Encounter: 10/23/16 Time of Encounter: 14:56 24 Hour HP Update - Instructions Instructions: If the History and Physical is less than 30 days old and was completed prior to A.M. admission and or procedure and has NOT been updated on calendar day of procedure please complete this update prior to performing procedure. - Update Patient reports changes in Medical Condition: No Changes in examination, assessment, or condition: No Changes in Medication: No Preop tests/diagnostics Reviewed: Yes Surgery Remains Indicated: Yes Consent for Planned Operative Procedure(s) Verified: Yes - Pre-Operative Checklist Preoperative Checklist Indicated: Yes Prophylactic Antibiotic Ordered: Yes Home Medications Include Beta Saman: No Is VTE Prophylaxis Indicated?: Yes
[2016-10-23] MEDS ORDERED: Ondansetron 4 MG/2 ML VIAL IVP ONE (15:38)
[2016-10-23] MEDS ORDERED: *HR* Morphine 2 MG/ML SYRINGE IV PRN (15:38)
[2016-10-23] MEDS ORDERED: Dexamethasone 4 MG/ML VIAL ONE (15:39)
[2016-10-23] MEDS ORDERED: EPHEDrine 50 MG/ML VIAL ONE (15:56)
--- NOTE | 2016-10-23 16:41 | Operative Note ---
Date of procedure: 10/23/16 Pre-op diagnosis: BPH, urinary retention Post-op diagnosis: same Procedure: Transurethral resection of the prostate Implants: 22 [place]oc[place] 3-way catheter. Complications: None. Anesthesia: DAVIDA Surgeon: Umair Venegas Estimated blood loss (cc): 200 Specimen: prostate chips Condition: stable Disposition: PACU Procedure in Detail: INDICATIONS: Michael is a 66 year old gentleman, who has BPH and is in urinary retention. He wished to undergo a transurethral resection of prostate. He is aware of the risks of procedure including, but not limited to, bleeding, infection, injury to other structures, need for further procedures, incomplete bladder emptying, bladder neck contracture, urethral stricture, urinary incontinence, retrograde ejaculation, erectile dysfunction, and the risk of anesthesia. He is willing to proceed. DESCRIPTION OF PROCEDURE: After informed consent was obtained, the patient was brought back to the operating room and placed in supine position. Time-out was performed. General anesthesia was then administered and a laryngeal mask airway was placed. He was then placed in lithotomy position. His genitalia were prepped and draped in usual sterile fashion. The resector sheath was then introduced using the visual obturator to the urethra. The prostate showed lateral lobe hyperplasia. There was some enlargement of the median lobe. The ureteral orifices were in the normal orthotopic position. There is no bladder tumor. There were 3+ trabeculations. There were diverticula located near the ureteral orifices bilaterally. I then inserted the Ramirez element with the resecting loop. The median lobe was taken down using electrocautery down to the level of the verumontanum. I then turned my attention to the left lateral lobe and this was resected away. Attention was then turned to the right lobe and this was resected away. I did perform a small amount of resection anteriorly as well. Once adequate resection was achieved, I then achieved hemostasis with electrocautery. All the TURP chips were irrigated out. I then confirmed hemostasis again. Once hemostasis was adequate, I removed the scope. The verumontanum and ureteral orifices were free of injury and left intact. A 22- Moroccan three-way catheter was then placed, 60 mL was instilled in the balloon. The catheter was left on mild traction. Slow continuous bladder irrigation was started. The patient was then awakened from general anesthesia, brought to recovery room in good condition. All sponge, needle, and instrument counts were correct.
--- NOTE | 2016-10-23 17:02 | Anesthesia Evaluation Post Op ---
Date of Encounter: 10/23/16 Time of Encounter: 17:00 - Vital Signs Vital Signs: Vital Signs/O2 Sat, Most Current Temp Pulse Resp BP Pulse Ox 98.3 F 67 16 133/70 100 10/23/16 16:35 10/23/16 16:55 10/23/16 16:55 10/23/16 16:55 10/23/16 16:55 - Lungs Lungs: Clear Ascult./Percussion - Airway Airway: Non-obstructed - Cardiovascular Regular Rate - Mental Status Mental Status: Alert & Oriented, Answers Appropriately - Pain Pain Scale: 0 Pain Scale used: Numeric (1 - 10) - Nausea Vomiting Nausea Vomiting: Not Present - Hydration Hydration: Ice chips, [place] catheter - Discharge PostOp Status: Transfer Patient to floor
[2016-10-23] MEDS ORDERED: *HR* HYDROcodone/Acet 5/325 mg TABLET PO PRN (17:40)
[2016-10-23] MEDS ORDERED: *HR* HYDROmorphone (PF) 1 MG/ML SYRINGE IVP PRN (17:40)
[2016-10-23] MEDS ORDERED: Ondansetron 4 MG/2 ML VIAL IVP PRN (17:40)
[2016-10-23] MEDS ORDERED: Naloxone 0.4 MG/ML INJ IVP PRN (17:40)
[2016-10-23] MEDS: 0.9 % Sodium Chloride 1,000 ML IVC SCH (20:58)
[2016-10-24] MEDS: 0.9 % Sodium Chloride 1,000 ML IVC SCH (05:10)
[2016-10-24 06:14] LABS: Eosinophils % 0.3 %; Hematocrit 24.9 % (37.5-50.1); Immature Granulocytes % 0.6 % (0-4); Lymphocytes # 1.7 K/mcL (0.6-4.6); Lymphocytes % 24.3 %; Mean Corpuscular HGB Conc 32.1 g/dL (31.6-35.5); Mean Corpuscular Hemoglobin 29.7 pg (28.0-33.3); Mean Corpuscular Volume 92.6 fL (83.0-100.0); Monocytes # 0.6 K/mcL (0.0-1.3); Monocytes % 8.8 %; Neutrophils # 4.5 K/mcL (1.6-8.9); Platelet Count 181 K/mcL (140-400); Red Blood Count 2.69 M/mcL (4.19-5.50); Red Cell Distribution Width 13.5 % (11.5-14.5)
[2016-10-24 06:27] LABS: Calcium 8.2 mg/dL (8.6-10.8); Potassium 4.5 mEq/L (3.5-4.5)
[2016-10-24 06:39] VITALS: BP 128/65
--- NOTE | 2016-10-24 07:30 | Discharge Summary ---
Date of Encounter: 10/24/16 Time of Encounter: 07:27 - Discharge Diagnosis (1) BPH loc w urin obs/LUTS Priority: Primary Status: Acute - Discharge Medications Prescriptions: HYDROcodone/Acet 5/325 mg [Nardin 5-325 mg] 2 tab PO Q4HR PRN #20 tablet PRN Reason: Mild Pain Docusate [Colace] 100 mg PO BID #60 capsule Home Medications: Metoprolol [Lopressor] 25 mg PO BID 09/10/16 [History] PredniSONE [Teresa] 2 mg PO DAILY 09/10/16 [History] Tamsulosin [Flomax] 0.4 mg PO HS 09/10/16 [History] Docusate [Colace] 100 mg PO BID #60 capsule 10/24/16 [Rx] HYDROcodone/Acet 5/325 mg [Nardin 5-325 mg] 2 tab PO Q4HR PRN #20 tablet [Rx] Allergies/Adverse Reactions: Allergies No Known Allergies Allergy (Verified 10/23/16 14:04) Labs on day of discharge: Labs from last 24 hours 10/24/16 10/24/16 10/23/16 05:58 05:58 13:50 WBC 6.8 RBC 2.69 L Hgb 8.0 L D Hct 24.9 L MCV 92.6 MCH 29.7 MCHC 32.1 RDW 13.5 Plt Count 181 MPV 11.0 Immature Gran % 0.6 Seg Neutrophils % 66.0 Lymphocytes % 24.3 Monocytes % 8.8 Eosinophils % 0.3 Basophils % 0.0 Neutrophils # 4.5 Lymphocytes # 1.7 Monocytes # 0.6 Eosinophils # 0.0 Basophils # 0.0 Sodium 135 L Potassium 4.5 Chloride 107 Carbon Dioxide 22 BUN 20 Creatinine 1.52 H Est GFR ( Amer) 56 L Est GFR (Non-Af Amer) 46 L BUN/Creatinine Ratio 13 Glucose 102 H Calculated Osmolality 283 Calcium 8.2 L Blood Type O POSITIVE Antibody Screen NEGATIVE Date of admission: 10/23/16 18:49 Primary care physician: Bear Peters, Discharging clinician: Umair Venegas Anticipated date of discharge: 10/24/16 - Patient Status Disposition: Home, Self-Care Condition: Good Functional capacity at discharge: independent ambulation Overall status at discharge: patient is progressing back to baseline - Discharge Instructions Follow Up With: Bear Peters MD [Primary Care Provider] - Umair Venegas MD [Partnered Physician] - (This week for a voiding trial. ) Additional Instructions: Please provide catheter care instructions - leg bag, night bag, leg strap and how to change the bags appropriately. 1. No heavy lifting greater than 20 pounds x2 weeks. 2. No tub baths while catheter in place 3. May shower. 4. He should follow up this week for a voiding trial. 5. He should return for any fevers, chills, nausea, vomiting, or significant hematuria. - Diet and Activity Activity: increase activity as tolerated Diet: advance to your usual diet - Hospital Course Hospital course: Mr. Woodruff is a 66 year old male with BPH and urinary retention and underwent a TURP on October 23, 2016. He did well for surgery. Postoperative day #1 his urine was clear. He was discharged home later that day with this catheter. A voiding trial will be planned later this week. - Time Spent with Patient Total time spent providing and/or coordinating discharge services: Less than 30 minutes Exam Initial Vital Signs Temp Pulse Resp BP Pulse Ox 97.3 F L 64 18 142/76 97 10/23/16 14:21 10/23/16 14:21 10/23/16 14:21 10/23/16 14:21 10/23/16 14:21 - General physical appearance Present: well developed, well nourished, no distress - Eyes Absent: icteric - ENT Present: normal nares - Neck Present: trachea midline - Respiratory Present: normal respiratory effort - Cardiovascular Cardiovascular exam IM: RRR - Abdomen Abdomen: Present: soft - VTE Documentation of Mechanical Device: Intermittent pneumatic compression device
[2016-10-24] MEDS ORDERED: predniSONE 1 MG TABLET PO SCH (09:00)
== END 2016-10-24 08:22 | disposition home or self-care (01) | DRG 714 ==
LOC: SAMDAY 13:10 → 3ANU 17:25
PROVIDERS: ADMIT Urology; ATTEND Urology
PROC: UROTURP (2016-10-23 15:55)

== ENCOUNTER 2019-03-20 00:45 | Inpatient (IN) ==
[2019-03-20] MEDS ORDERED: Naloxone 0.4 MG/ML INJ IVP PRN (05:12)
[2019-03-20] MEDS ORDERED: *HR* Heparin 5,000 UNIT/ML VIAL IVP ONE ×2 (05:14→05:29)
[2019-03-20] MEDS ORDERED: *HR* Heparin 5,000 UNIT/ML VIAL IVP PRN ×4 (05:14→05:29)
[2019-03-20] MEDS ORDERED: Heparin 25,000 UNIT/250 ML D5W 25,000 UNIT/250 ML IV.SOLN IVC SCH (05:15)
[2019-03-20] MEDS ORDERED: *HR* OxyCODONE Immed Rel 5 MG TABLET PO PRN (05:15)
[2019-03-20 05:45] LABS: Basophils % 0.2 %; Eosinophils # 0.1 K/mcL (0.0-0.6); Eosinophils % 1.2 %; Hematocrit 42.9 % (37.5-50.1); Immature Granulocytes % 1.1 % (0-4); Lymphocytes # 1.6 K/mcL (0.6-4.6); Lymphocytes % 17.2 %; Mean Corpuscular HGB Conc 32.6 g/dL (31.6-35.5); Mean Corpuscular Hemoglobin 29.4 pg (28.0-33.3); Mean Corpuscular Volume 89.9 fL (83.0-100.0); Mean Platelet Volume 10.4 fL (9.4-12.4); Monocytes # 0.9 K/mcL (0.0-1.3); Monocytes % 9.8 %; Neutrophils # 6.5 K/mcL (1.6-8.9); Platelet Count 209 K/mcL (140-400); Red Blood Count 4.77 M/mcL (4.19-5.50); Red Cell Distribution Width 15.8 % (11.5-14.5); Segmented Neutrophils % 70.5 %; White Blood Count 9.2 K/mcL (4.3-11.1)
[2019-03-20] MEDS: *HR* HYDROcodone/Acet 5/325 mg TABLET PO PRN ×2 (05:45→15:45)
[2019-03-20 05:48] LABS: Heparin anti-factor XA UFH 0.02 IU/mL (0.30-0.70); INR 1.2; Prothrombin Time 13.1 Seconds (9.4-12.1)
[2019-03-20] MEDS ORDERED: 0.9 % Sodium Chloride 1,000 ML IVC ONE (05:53)
[2019-03-20 06:08] LABS: Alanine Aminotransferase 9 Units/L (7-52); Albumin 3.9 g/dL (3.5-5.7); Albumin/Globulin Ratio 1.1 (1.1-2.2); Alkaline Phosphatase 67 Units/L (34-104); Aspartate Amino Transferase 15 Units/L (13-39); BUN/Creatinine Ratio 15 (6-26); Bilirubin,Total 0.8 mg/dL (0.3-1.0); Blood Urea Nitrogen 25 mg/dL (8-23); Calcium 9.6 mg/dL (8.6-10.3); Carbon Dioxide 28 mEq/L (23-29); Chloride 100 mEq/L (98-107); Globulin 3.6 g/dL (2.4-3.5); Glucose 146 mg/dL (70-105); Magnesium 1.9 mg/dL (1.6-2.6); Osmolality,Calculated 293 (280-300); Potassium 4.1 mEq/L (3.5-5.1); Sodium 138 mEq/L (136-145); Total Protein 7.5 g/dL (6.4-8.9); Troponin I < 0.03 ng/mL (< 0.04); eGFR For African Americans 49 (> 60); eGFR For Non-African Americans 41 (> 60)
[2019-03-20] MEDS: hydroCHLOROthiazide 25 MG TABLET PO SCH (12:03)
[2019-03-20] MEDS: Magnesium Oxide 400 MG TABLET PO SCH ×2 (12:03→22:36)
[2019-03-20] MEDS: sulfaSALAzine 500 MG TABLET PO SCH ×2 (12:04→18:46)
[2019-03-20] MEDS ORDERED: Ipratropium/Albuterol Neb 3 ML IH PRN (15:55)
[2019-03-20] MEDS: Acetaminophen 325 MG TABLET PO PRN (18:46)
[2019-03-20] MEDS ORDERED: Azithromycin 500 MG in 0.9 % Sodium Chloride 250 ML IVPB SCH (19:00)
[2019-03-20] MEDS ORDERED: cefTRIAXone 2,000 MG in Water for inj. (sterile) 20 ML IVP SCH (19:00)
[2019-03-21] MEDS: *HR* HYDROcodone/Acet 5/325 mg TABLET PO PRN (04:16)
[2019-03-21 04:52] LABS: Basophils % 0.3 %; Eosinophils # 0.2 K/mcL (0.0-0.6); Eosinophils % 2.1 %; Hematocrit 37.8 % (37.5-50.1); Immature Granulocytes % 0.7 % (0-4); Lymphocytes # 1.3 K/mcL (0.6-4.6); Lymphocytes % 14.7 %; Mean Corpuscular Hemoglobin 29.5 pg (28.0-33.3); Mean Corpuscular Volume 92.2 fL (83.0-100.0); Monocytes # 0.9 K/mcL (0.0-1.3); Monocytes % 9.6 %; Neutrophils # 6.5 K/mcL (1.6-8.9); Platelet Count 181 K/mcL (140-400); Segmented Neutrophils % 72.6 %
[2019-03-21 04:54] LABS: Hemoglobin 12.1 g/dL (12.9-16.9)
[2019-03-21 05:00] LABS: Calcium 8.8 mg/dL (8.6-10.3); Potassium 3.6 mEq/L (3.5-5.1)
[2019-03-21] MEDS: 0.9 % Sodium Chloride 1,000 ML IVC SCH ×2 (06:23→17:59)
[2019-03-21] MEDS: hydroCHLOROthiazide 25 MG TABLET PO SCH (09:33)
[2019-03-21] MEDS: Magnesium Oxide 400 MG TABLET PO SCH ×2 (09:33→20:34)
[2019-03-21] MEDS: sulfaSALAzine 500 MG TABLET PO SCH ×2 (09:36→17:59)
[2019-03-21] MEDS: Acetaminophen 325 MG TABLET PO PRN (15:23)
[2019-03-21] MEDS: Ipratropium/Albuterol Neb 3 ML IH SCH ×2 (15:46→22:38)
[2019-03-21] MEDS ORDERED: Ipratropium/Albuterol Neb 3 ML IH SCH (16:00)
[2019-03-21] MEDS: Doxycycline 100 MG in 0.9 % Sodium Chloride Mini Bag 100 ML IVPB SCH (17:58)
[2019-03-21 20:06] LABS: Adenovirus Not Detected (Not Detect); Bordetella Pertussis Not Detected (Not Detect); Chlamydophila pneumoniae Not Detected (Not Detect); Coronavirus 229E Not Detected (Not Detect); Coronavirus HKU1 Not Detected (Not Detect); Coronavirus NL63 Not Detected (Not Detect); Coronavirus OC43 Not Detected (Not Detect); Human Metapneumovirus Not Detected (Not Detect); Human Rhinovirus/Enterovirus Not Detected (Not Detect); Influenza A Subtype 2009 H1 Not Detected (Not Detect); Influenza A Untypeable Not Detected (Not Detect); Influenza B Not Detected (Not Detect); Mycoplasma pneumoniae Not Detected (Not Detect); Parainfluenza Virus 1 Not Detected (Not Detect); Parainfluenza Virus 2 Not Detected (Not Detect); Parainfluenza Virus 3 Not Detected (Not Detect); Parainfluenza Virus 4 Not Detected (Not Detect); Respiratory Syncytial Virus Not Detected (Not Detect)
[2019-03-21] MEDS: *HR* Heparin 5,000 UNIT/ML VIAL SQ SCH (20:34)
[2019-03-21] MEDS ORDERED: Doxycycline 100 MG CAPSULE PO SCH (21:00)
[2019-03-22 01:10] LABS: Basophils % 0.1 %; Eosinophils # 0.2 K/mcL (0.0-0.6); Eosinophils % 2.4 %; Hematocrit 38.1 % (37.5-50.1); Hemoglobin 12.2 g/dL (12.9-16.9); Immature Granulocytes % 0.6 % (0-4); Lymphocytes # 1.4 K/mcL (0.6-4.6); Lymphocytes % 18.8 %; Mean Corpuscular Hemoglobin 29.4 pg (28.0-33.3); Mean Corpuscular Volume 91.8 fL (83.0-100.0); Mean Platelet Volume 11.1 fL (9.4-12.4); Monocytes # 0.5 K/mcL (0.0-1.3); Monocytes % 6.2 %; Neutrophils # 5.2 K/mcL (1.6-8.9); Platelet Count 166 K/mcL (140-400); Red Blood Count 4.15 M/mcL (4.19-5.50); Red Cell Distribution Width 15.5 % (11.5-14.5); Segmented Neutrophils % 71.9 %; White Blood Count 7.2 K/mcL (4.3-11.1)
[2019-03-22] MEDS: Aspirin 81 MG TAB.CHEW PO SCH ×2 (01:28→08:09)
[2019-03-22 01:31] LABS: Calcium 9.4 mg/dL (8.6-10.3); Potassium 3.5 mEq/L (3.5-5.1)
[2019-03-22] MEDS ORDERED: Albuterol Neb 1.25 MG/3 ML VIAL IH SCH (04:00)
[2019-03-22] MEDS: *HR* Heparin 5,000 UNIT/ML VIAL SQ SCH (05:36)
[2019-03-22] MEDS: Doxycycline 100 MG in 0.9 % Sodium Chloride Mini Bag 100 ML IVPB SCH (05:37)
[2019-03-22] MEDS ORDERED: 0.9 % Sodium Chloride 500 ML ONE (08:00)
[2019-03-22] MEDS: hydroCHLOROthiazide 25 MG TABLET PO SCH (08:02)
[2019-03-22] MEDS: predniSONE 20 MG TABLET PO SCH (08:03)
[2019-03-22] MEDS: Magnesium Oxide 400 MG TABLET PO SCH ×2 (08:03→20:45)
[2019-03-22] MEDS: sulfaSALAzine 500 MG TABLET PO SCH ×2 (08:04→17:28)
[2019-03-22] MEDS ORDERED: Diltiazem CD (24hr) 180 MG CAPSULE PO SCH (09:45)
[2019-03-22] MEDS: Apixaban 5 MG TABLET PO SCH ×2 (09:52→20:45)
[2019-03-22] MEDS: Levalbuterol Neb 0.63 MG/3 ML IH SCH ×3 (10:29→21:49)
[2019-03-22] MEDS: 0.9 % Sodium Chloride 1,000 ML IVC SCH (17:28)
[2019-03-22] MEDS: Doxycycline 100 MG CAPSULE PO SCH (20:45)
[2019-03-23] MEDS: Levalbuterol Neb 0.63 MG/3 ML IH SCH ×2 (03:24→11:22)
[2019-03-23 05:22] LABS: Hematocrit 32.3 % (37.5-50.1); Hemoglobin 10.9 g/dL (12.9-16.9); Mean Corpuscular HGB Conc 33.7 g/dL (31.6-35.5); Mean Corpuscular Hemoglobin 29.2 pg (28.0-33.3); Mean Corpuscular Volume 86.6 fL (83.0-100.0); Mean Platelet Volume 10.7 fL (9.4-12.4); Platelet Count 210 K/mcL (140-400); Red Blood Count 3.73 M/mcL (4.19-5.50); Red Cell Distribution Width 15.3 % (11.5-14.5); White Blood Count 6.7 K/mcL (4.3-11.1)
[2019-03-23 05:38] LABS: Calcium 8.8 mg/dL (8.6-10.3); Potassium 3.6 mEq/L (3.5-5.1)
[2019-03-23 05:51] LABS: Thyroid Stimulating Hormone 1.179 mcIU/mL (0.340-5.600)
[2019-03-23] MEDS: 0.9 % Sodium Chloride 1,000 ML IVC SCH (07:31)
[2019-03-23 08:19] VITALS: BP 124/66
[2019-03-23] MEDS: Doxycycline 100 MG CAPSULE PO SCH (08:26)
[2019-03-23] MEDS: Apixaban 5 MG TABLET PO SCH (08:26)
[2019-03-23] MEDS: predniSONE 20 MG TABLET PO SCH (08:26)
[2019-03-23] MEDS: Magnesium Oxide 400 MG TABLET PO SCH (08:26)
[2019-03-23] MEDS: sulfaSALAzine 500 MG TABLET PO SCH (08:27)
[2019-03-23] MEDS ORDERED: FLU Vac QV 19-20 (6Month+)/PF 0.5 ML SYRINGE IM ONE (10:33)
== END 2019-03-23 15:12 | disposition home or self-care (01) | DRG 871 ==
LOC: 3ANU → SUATTDRO 01:59
PROVIDERS: ADMIT Internal Medicine; ATTEND Internal Medicine